=== PATIENT | female | born 1950 | race Two or more races ===

== ENCOUNTER 2017-06-10 16:08 | Observation (INO) | payer OTHER ==
[2017-06-10] MEDS ORDERED: IV RINGERS,LACTATED 1000ML 1,000 ML IV (16:29)
[2017-06-10 16:46] LABS: ADD MAN DIFF? NO
[2017-06-10 16:48] LABS: BASO % 0 % (0-3); EOS % 0 % (0-3); HEMATOCRIT 41.8 % (36.0-47.0); HEMOGLOBIN 13.8 g/dL (12.0-15.5); LYMPH # 1.3 x10^3/uL (1.0-4.8); LYMPH % 11 % (24-48); MEAN CORPUSCULAR HEMOGLOBIN 29 pg (25-35); MEAN CORPUSCULAR HGB CONC 33 g/dL (31-37); MEAN CORPUSCULAR VOLUME 89 fL (79-100); MONO # 0.9 x10^3/uL (0.0-1.1); MONO % 8 % (0-9); NEUT # 9.2 x10^3uL (1.8-7.7); NEUT % 81 % (31-73); PLATELET COUNT 197 x10^3/uL (140-400); RED BLOOD COUNT 4.68 x10^6/uL (3.50-5.40); RED CELL DISTRIBUTION WIDTH 13.3 % (11.5-14.5); WHITE BLOOD COUNT 11.3 x10^3/uL (4.0-11.0)
[2017-06-10] MEDS: ONDANSETRON PF 4 MG/2 ML VIAL. IV ×2 (16:55→22:56)
[2017-06-10] MEDS: IV NORMAL SALINE 1000ML BAG 1,000 ML IV ×2 (16:55→23:21)
[2017-06-10] MEDS: fentaNYL PF VIAL 100 MCG/2 ML VIAL IV (16:56)
[2017-06-10 16:57] LABS: ANION GAP 12 (6-14); BLOOD UREA NITROGEN 12 mg/dL (7-20); BUN/CREATININE RATIO 12 (6-20); CALCIUM 8.4 mg/dL (8.5-10.1); CARBON DIOXIDE 25 mmol/L (21-32); CHLORIDE 100 mmol/L (98-107); GFR 55.1; GLUCOSE 111 mg/dL (70-99); POTASSIUM 3.5 mmol/L (3.5-5.1); SODIUM 137 mmol/L (136-145)
[2017-06-10 17:04] LABS: ALBUMIN 3.4 g/dL (3.4-5.0); ALBUMIN/GLOBULIN RATIO 0.9 (1.0-1.7); ALK PHOS 70 U/L (46-116); ALT (SGPT) 23 U/L (14-59); AST (SGOT) 14 U/L (15-37); LIPASE 168 U/L (73-393); TOTAL BILIRUBIN 0.7 mg/dL (0.2-1.0); TOTAL PROTEIN 7.4 g/dL (6.4-8.2)
[2017-06-10] MEDS: IOHEXOL 300 MG/ML 100ML VIAL. IV (17:14)
[2017-06-10] MEDS ORDERED: ACETAMINOPHEN 325 MG TABLET. PO (18:15)
[2017-06-10] MEDS: MORPHINE SULFATE 4 MG/ML DISP.SYRIN. IV (22:55)
[2017-06-11] MEDS: IV NORMAL SALINE 1000ML BAG 1,000 ML IV ×3 (02:06→12:00)
[2017-06-11 04:33] LABS: POC GLUCOSE 108 mg/dL (70-99)
[2017-06-11 07:39] LABS: POC GLUCOSE 102 mg/dL (70-99)
[2017-06-11] MEDS ORDERED: ACETAMINOPHEN 325 MG TABLET. PO (12:00)
[2017-06-11] MEDS ORDERED: ONDANSETRON ODT 4 MG TAB.RAPDIS. PO (12:00)
[2017-06-11] MEDS: POTASSIUM CHLORIDE 20 MEQ TABLET.ER. PO (12:22)
[2017-06-11] MEDS ORDERED: metFORMIN 500 MG TABLET PO (17:00)
[2017-06-11] MEDS ORDERED: cefTRIAXone IV Push 1 GM VIAL. IVP (19:00)
[2017-06-12 01:00] LABS: POC GLUCOSE 96 mg/dL (70-99)
[2017-06-12 01:00] LABS: POC GLUCOSE 110 mg/dL (70-99)
[2017-06-12 01:00] LABS: POC GLUCOSE 114 mg/dL (70-99)
[2017-06-12] MEDS: IV NORMAL SALINE 1000ML BAG 1,000 ML IV (03:51)
[2017-06-12 05:10] LABS: ADD MAN DIFF? NO
[2017-06-12 05:27] LABS: BASO % 0 % (0-3); EOS % 1 % (0-3); HEMATOCRIT 34.2 % (36.0-47.0); HEMOGLOBIN 11.7 g/dL (12.0-15.5); LYMPH # 1.8 x10^3/uL (1.0-4.8); LYMPH % 28 % (24-48); MEAN CORPUSCULAR HEMOGLOBIN 31 pg (25-35); MEAN CORPUSCULAR HGB CONC 34 g/dL (31-37); MEAN CORPUSCULAR VOLUME 90 fL (79-100); MONO # 0.7 x10^3/uL (0.0-1.1); MONO % 12 % (0-9); NEUT # 3.7 x10^3uL (1.8-7.7); NEUT % 59 % (31-73); PLATELET COUNT 192 x10^3/uL (140-400); RED BLOOD COUNT 3.79 x10^6/uL (3.50-5.40); WHITE BLOOD COUNT 6.2 x10^3/uL (4.0-11.0)
[2017-06-12 05:50] LABS: ANION GAP 6 (6-14); BLOOD UREA NITROGEN 9 mg/dL (7-20); CALCIUM 8.5 mg/dL (8.5-10.1); CARBON DIOXIDE 28 mmol/L (21-32); CHLORIDE 109 mmol/L (98-107); CREATININE 0.6 mg/dL (0.6-1.0); GFR 99.4; GLUCOSE 98 mg/dL (70-99); POTASSIUM 3.7 mmol/L (3.5-5.1); SODIUM 143 mmol/L (136-145)
[2017-06-12 06:05] LABS: THYROID STIM HORMONE (TSH) 4.894 uIU/mL (0.358-3.74)
[2017-06-12] MEDS: POTASSIUM CL 20MEQ-0.45% NACL 1,000 ML IV (11:01)
[2017-06-12 13:19] LABS: C DIFF BY PCR Negative (Negative)
[2017-06-12 16:20] LABS: POC GLUCOSE 105 mg/dL (70-99)
[2017-06-12 16:20] LABS: POC GLUCOSE 98 mg/dL (70-99)
[2017-06-12 16:20] LABS: POC GLUCOSE 116 mg/dL (70-99)
[2017-06-13] MEDS: POTASSIUM CL 20MEQ-0.45% NACL 1,000 ML IV (04:26)
[2017-06-13 05:29] LABS: ADD MAN DIFF? NO
[2017-06-13 05:38] LABS: BASO % 0 % (0-3); EOS % 1 % (0-3); HEMOGLOBIN 12.5 g/dL (12.0-15.5); LYMPH # 1.9 x10^3/uL (1.0-4.8); LYMPH % 33 % (24-48); MEAN CORPUSCULAR HEMOGLOBIN 30 pg (25-35); MEAN CORPUSCULAR HGB CONC 34 g/dL (31-37); MEAN CORPUSCULAR VOLUME 90 fL (79-100); MONO # 0.8 x10^3/uL (0.0-1.1); MONO % 14 % (0-9); NEUT # 3.1 x10^3uL (1.8-7.7); NEUT % 52 % (31-73); PLATELET COUNT 234 x10^3/uL (140-400); RED BLOOD COUNT 4.13 x10^6/uL (3.50-5.40); RED CELL DISTRIBUTION WIDTH 13.1 % (11.5-14.5); WHITE BLOOD COUNT 5.8 x10^3/uL (4.0-11.0)
[2017-06-13 06:03] LABS: ANION GAP 9 (6-14); BLOOD UREA NITROGEN 7 mg/dL (7-20); CALCIUM 8.5 mg/dL (8.5-10.1); CARBON DIOXIDE 27 mmol/L (21-32); CHLORIDE 106 mmol/L (98-107); CREATININE 0.6 mg/dL (0.6-1.0); GFR 99.4; GLUCOSE 98 mg/dL (70-99); POTASSIUM 3.7 mmol/L (3.5-5.1); SODIUM 142 mmol/L (136-145)
[2017-06-13 07:20] LABS: POC GLUCOSE 97 mg/dL (70-99)
[2017-06-13 12:15] LABS: POC GLUCOSE 172 mg/dL (70-99)
== END 2017-06-13 12:50 | disposition home or self-care (01) ==
LOC: ER 16:08 → 5 SOUTH 17:58
DX: K52.9 Noninfective gastroenteritis and colitis, unspecified (principal); E11.9 Type 2 diabetes mellitus without complications; I10 Essential (primary) hypertension; K21.9 Gastro-esophageal reflux disease without esophagitis; K57.30 Diverticulosis of large intestine without perforation or abscess without bleeding; M85.80 Other specified disorders of bone density and structure, unspecified site; N20.0 Calculus of kidney; Z98.51 Tubal ligation status
CPT/HCPCS: 36415; 71045; 74177; 80048; 80053; 82962; 83690; 84443; 85025; 87045; 87205; 87324; 93005; 96361; 96365; 96366; 96367; 96368; 96375; 96376; 99285-25; G0378; G0379; J0690; J2270; J2405; J3010; J3490; J7030; Q9967

== ENCOUNTER 2019-02-24 21:35 | Observation (INO) | payer OTHER ==
[~2019-02-24] VITALS: Ht 152.4 cm; Wt 59.7 kg
[~2019-02-24 21:35] MED LIST: AMLO5TAB10 PO; ASPI-630 PO; CHOL10003 PO; DICL100G18 TP; GABA300C18 PO; KETO120S5 TP; KETO15CR2 TP; LOSA-73 PO; METF500T PO; OMEG1CAP38 PO; OMEP-229 PO; calcium; gabapentin; glucosamine; lisinopril; prilosec
[2019-02-24 22:07] LABS: BASO % 1 % (0-3); EOS % 0 % (0-3); HEMATOCRIT 42.7 % (36.0-47.0); HEMOGLOBIN 14.3 g/dL (12.0-15.5); LYMPH # 2.2 x10^3/uL (1.0-4.8); LYMPH % 27 % (24-48); MEAN CORPUSCULAR HEMOGLOBIN 31 pg (25-35); MEAN CORPUSCULAR HGB CONC 34 g/dL (31-37); MEAN CORPUSCULAR VOLUME 92 fL (79-100); MONO # 0.6 x10^3/uL (0.0-1.1); MONO % 7 % (0-9); NEUT # 5.2 x10^3/uL (1.8-7.7); NEUT % 65 % (31-73); PLATELET COUNT 231 x10^3/uL (140-400); RED BLOOD COUNT 4.66 x10^6/uL (3.50-5.40); RED CELL DISTRIBUTION WIDTH 13.2 % (11.5-14.5)
[2019-02-24 22:16] LABS: CALCIUM 9.3 mg/dL (8.5-10.1); CREATININE 0.7 mg/dL (0.6-1.0); GFR 82.7; POTASSIUM 3.6 mmol/L (3.5-5.1)
[2019-02-24 22:21] LABS: ALBUMIN 4.1 g/dL (3.4-5.0); TOTAL BILIRUBIN 0.4 mg/dL (0.2-1.0); TOTAL PROTEIN 8.2 g/dL (6.4-8.2)
[2019-02-24] MEDS ORDERED: NITROGLYCERIN SUBLINGUAL 0.4 MG BOTTLE OF 25. SL PRN ×2 (22:30→23:30)
--- NOTE | 2019-02-24 22:33 | PHYS DOC ---
Past Medical History Past Medical History: Diabetes-Type II, High Cholesterol, Hypertension, Other Additional Past Medical Histor: FATTY LIVER Past Surgical History: No Surgical History Alcohol Use: None Drug Use: None Adult General Chief Complaint Chief Complaint: CHEST PAIN HPI HPI Patient is a 68 year old history of CAD who presents with left-sided chest pain starting several hours prior to ED arrival. Pain is described as dull does not reproduce with palpation, movement or deep breathing. Partial relieved with nitroglycerin. No nausea vomiting or sweats. No shortness breath. Denies incr eased leg pain or swelling. No normal pain or flank pain. No other acute symptoms or complaints.[] Review of Systems Review of Systems Review symptoms as per history of present illness. All other review symptoms are negative. All other systems were reviewed and found to be within normal limits, except as documented in this note. Current Medications Current Medications Current Medications Medications (Trade) Dose Ordered Sig/Chidi Start Time Stop Time Status Last Admin Dose Admin Aspirin (Children'S Aspirin) 324 mg 1X ONCE 02/24/19 23:00 02/24/19 23:01 DC 02/24/19 23:02 324 MG Nitroglycerin (Nitrostat) 0.4 mg PRN Q5MIN PRN 02/24/19 22:30 02/24/19 23:03 0.4 MG Allergies Allergies Allergies Coded Allergies Type Severity Reaction Last Updated Verified No Known Drug Allergies 05/28/15 No Physical Exam Physical Exam Constitutional: Well developed, well nourished, no acute distress, non-toxic appearance. [] HENT: Normocephalic, atraumatic, bilateral external ears normal, oropharynx moist, no oral exudates, nose normal. [] Eyes: PERRLA, EOMI, conjunctiva normal, no discharge. [] Neck: Normal range of motion, no tenderness, supple, no stridor. [] Cardiovascular: Bradyardiac, no murmur, 1+peripheral edema, negative Homans sign.[] Lungs & Thorax: Bilateral breath sounds clear to auscultation [] Abdomen: Bowel sounds normal, soft, no tenderness, no masses, no pulsatile masses. [] Skin: Warm, dry, no erythema, no rash. [] Back: No tenderness, no CVA tenderness. [] Extremities: R forearm, contusion with finger imprints. [] Neurologic: Alert and oriented X 3, normal motor function, normal sensory function, no focal deficits noted. [] Psychologic: Affect normal, judgement normal, mood normal. [] Current Patient Data Vital Signs Vital Signs Date Time Temp Pulse Resp B/P (MAP) Pulse Ox O2 Delivery O2 Flow Rate FiO2 02/24/19 23:03 48 163/93 02/24/19 21:38 98.0 18 98 Room Air 98.0 Lab Values Laboratory Tests Test 02/24/19 21:50 White Blood Count 8.0 x10^3/uL (4.0-11.0) Red Blood Count 4.66 x10^6/uL (3.50-5.40) Hemoglobin 14.3 g/dL (12.0-15.5) Hematocrit 42.7 % (36.0-47.0) Mean Corpuscular Volume 92 fL (79-100) Mean Corpuscular Hemoglobin 31 pg (25-35) Mean Corpuscular Hemoglobin Concent 34 g/dL (31-37) Red Cell Distribution Width 13.2 % (11.5-14.5) Platelet Count 231 x10^3/uL (140-400) Neutrophils (%) (Auto) 65 % (31-73) Lymphocytes (%) (Auto) 27 % (24-48) Monocytes (%) (Auto) 7 % (0-9) Eosinophils (%) (Auto) 0 % (0-3) Basophils (%) (Auto) 1 % (0-3) Neutrophils # (Auto) 5.2 x10^3/uL (1.8-7.7) Lymphocytes # (Auto) 2.2 x10^3/uL (1.0-4.8) Monocytes # (Auto) 0.6 x10^3/uL (0.0-1.1) Eosinophils # (Auto) 0.0 x10^3/uL (0.0-0.7) Basophils # (Auto) 0.0 x10^3/uL (0.0-0.2) D-Dimer ([place]) 0.35 ug/mlFEU (0.00-0.50) Sodium Level 139 mmol/L (136-145) Potassium Level 3.6 mmol/L (3.5-5.1) Chloride Level 103 mmol/L (98-107) Carbon Dioxide Level 27 mmol/L (21-32) Anion Gap 9 (6-14) Blood Urea Nitrogen 14 mg/dL (7-20) Creatinine 0.7 mg/dL (0.6-1.0) Estimated GFR (Cockcroft-Gault) 82.7 BUN/Creatinine Ratio 20 (6-20) Glucose Level 108 mg/dL (70-99) H Calcium Level 9.3 mg/dL (8.5-10.1) Total Bilirubin 0.4 mg/dL (0.2-1.0) Aspartate Amino Transferase (AST) 18 U/L (15-37) Alanine Aminotransferase (ALT) 23 U/L (14-59) Alkaline Phosphatase 92 U/L (46-116) Troponin I Quantitative < 0.017 ng/mL (0.000-0.055) Total Protein 8.2 g/dL (6.4-8.2) Albumin 4.1 g/dL (3.4-5.0) Albumin/Globulin Ratio 1.0 (1.0-1.7) Laboratory Tests 02/24/19 21:50 Laboratory Tests 02/24/19 21:50 EKG EKG [EKG: reviewed] Radiology/Procedures Radiology/Procedures CXR: reviewed[] Course & Med Decision Making Course & Med Decision Making Pertinent Labs and Imaging studies reviewed. (See chart for details) [Aspirin, nitroglycerin given in the ED. Chest pain resolved. Dr. Landeros to admit with anticipated cardiology consult.] Dragon Disclaimer Dragon Disclaimer This electronic medical record was generated, in whole or in part, using a voice recognition dictation system. Departure Departure Impression: Primary Impression: Chest pain Disposition: ADMITTED INPATIENT Admitting Physician: Allen Landeros Condition: STABLE Referrals: ALLEN LANDEROS MD (PCP) Scripts No Active Prescriptions or Reported Meds OPHELIA WALLACE DO Feb 24, 2019 22:33
[2019-02-24] MEDS ORDERED: ASPIRIN CHEWABLE 81 MG TABLET. PO ONE (23:00)
[2019-02-24] MEDS ORDERED: ONDANSETRON PF 4 MG/2 ML VIAL. IV PRN (23:30)
--- NOTE | 2019-02-24 23:57 | RAD ---
EXAM: CHEST 1 VIEW History: Chest pain COMPARISON: 06/11/2017 TECHNIQUE: Single portable radiograph of the chest FINDINGS: The cardiac silhouette is unremarkable. The lungs are clear bilaterally. The costophrenic sulci are clear and well demarcated. IMPRESSION: No radiographic evidence of an acute cardiopulmonary process. Electronically signed by: Juan Luong MD (02/24/2019 11:54 PM) [facility]
[2019-02-25 01:29] VITALS: BP 161/69
[2019-02-25 03:55] LABS: BASO # 0.1 x10^3/uL (0.0-0.2); BASO % 1 % (0-3); EOS # 0.1 x10^3/uL (0.0-0.7); EOS % 1 % (0-3); HEMATOCRIT 39.3 % (36.0-47.0); HEMOGLOBIN 13.2 g/dL (12.0-15.5); LYMPH # 1.9 x10^3/uL (1.0-4.8); LYMPH % 30 % (24-48); MEAN CORPUSCULAR HEMOGLOBIN 31 pg (25-35); MEAN CORPUSCULAR HGB CONC 34 g/dL (31-37); MEAN CORPUSCULAR VOLUME 92 fL (79-100); MONO # 0.6 x10^3/uL (0.0-1.1); MONO % 9 % (0-9); NEUT # 3.8 x10^3/uL (1.8-7.7); NEUT % 59 % (31-73); PLATELET COUNT 219 x10^3/uL (140-400); RED BLOOD COUNT 4.28 x10^6/uL (3.50-5.40); RED CELL DISTRIBUTION WIDTH 12.7 % (11.5-14.5); WHITE BLOOD COUNT 6.4 x10^3/uL (4.0-11.0)
[2019-02-25 03:59] VITALS: BP 129/64
[2019-02-25 04:02] LABS: CALCIUM 8.9 mg/dL (8.5-10.1); CREATININE 0.7 mg/dL (0.6-1.0); GFR 82.7; POTASSIUM 3.4 mmol/L (3.5-5.1)
--- NOTE | 2019-02-25 06:46 | EKG ---
[facility] [address] [place] [address] Test Date: 2019-02-24 Test Time: 21:41:22 Pat Name: JENNA JACKSON Department: Room: 646 1 Gender: F Client Specialist: : [id number] Requested By: OPHELIA WALLACE Order Number: [id number] Reading MD: Tin Lockhart MD Measurements Intervals [place] Rate: 50 P: -56 AL: 188 QRS: -33 QRSD: 90 T: 39 QT: 438 QTc: 405 Interpretive Statements SINUS RHYTHM NON-SPECIFIC ST/T CHANGES Electronically Signed On 02-25-2019 14:56:54 PRODUCTION ARTIST by Tin Lockhart MD
[2019-02-25 07:37] VITALS: BP 144/72
[2019-02-25] MEDS ORDERED: METF500T16 PO (07:56)
[2019-02-25] MEDS ORDERED: CHOL200078 PO (07:56)
[2019-02-25] MEDS ORDERED: OMEG-32 PO (07:56)
[2019-02-25] MEDS ORDERED: ATOR10TA60 PO (07:56)
[2019-02-25] MEDS ORDERED: GABA-585 PO (07:56)
[2019-02-25] MEDS ORDERED: LOSA-73 PO (07:56)
[2019-02-25] MEDS ORDERED: GABAPENTIN 100 MG CAPSULE. PO SCH (09:00)
[2019-02-25] MEDS ORDERED: OMEGA-3 FATTY ACIDS/FISH OIL 1,000 MG CAPSULE. PO SCH ×2 (09:00)
[2019-02-25] MEDS ORDERED: LOSARTAN POTASSIUM 50 MG TABLET. PO SCH (09:00)
[2019-02-25] MEDS ORDERED: ACETAMINOPHEN 325 MG TABLET. PO PRN (10:30)
--- NOTE | 2019-02-25 10:43 | PDOC ---
Provider Note Provider Note history and physical dictated # [id number] GILBERTO HURTADO MD Feb 25, 2019 10:43
--- NOTE | 2019-02-25 10:53 | HP ---
ADMIT DATE: 02/24/2019 LOCATION: She is in room 646. HISTORY OF PRESENT ILLNESS: The patient is a 68-year-old white female with a history of diabetes mellitus type 2, hypertension, hyperlipidemia, who noted the onset of left-sided chest pain, which she described as a sharp pain. Lasted about 5 minutes or so. Eventually resolved. She denied any diaphoresis or shortness of breath. The pain radiated to the shoulder and also to back. Apparently, she had partial relief with nitroglycerin according to the Emergency Room note. She was subsequently admitted to the hospital for further evaluation and treatment. ALLERGIES AND INTOLERANCES: TRAMADOL, WHICH CAUSED DIZZINESS. MEDICATIONS: Prior to admission include atorvastatin 10 mg every day, fish oil 1 g every day, gabapentin 100 mg b.i.d., losartan 50 mg every day, meclizine 12.5 mg t.i.d. p.r.n. vertigo, metformin 500 mg b.i.d., omeprazole 40 mg every day, and vitamin D 1000 units every day. PAST MEDICAL HISTORY: Significant for diabetes mellitus type 2, hypertension, hyperlipidemia, osteopenia, hiatal hernia, gastric polyp in 2004, diverticulosis, cholelithiasis, bilateral tubal ligation, colonoscopy in 2002, bilateral cataract extraction in 2018. SOCIAL HISTORY: She does not drink alcohol nor does she smoke cigarettes. She is . FAMILY HISTORY: Noncontributory. REVIEW OF SYSTEMS: GENERAL: She denies any fever, chills or sweats in the last 3 days. CARDIOVASCULAR: She had the chest pain. PULMONARY: No cough or shortness of breath. GASTROINTESTINAL: No diarrhea. ENDOCRINE: She has diabetes mellitus. SKIN: No rashes. The rest of systems reviewed are negative except as stated in the history of present illness. PHYSICAL EXAMINATION: VITAL SIGNS: Temperature 97.5 degrees, apical pulse is 49 on the monitor in sinus bradycardia, respiratory rate 18, blood pressure 144/72, oxygen saturation 98% on room air. HEENT: Eyes: Gaze is conjugate. Mouth: Tongue is midline. NECK: There is no cervical lymphadenopathy or thyroid enlargement. HEART: Reveals an S1, S2. There is no S3 or murmur. LUNGS: Clear. ABDOMEN: Soft with no hepatosplenomegaly, masses or tenderness. EXTREMITIES: Lower extremities without edema. SKIN: No rashes. NEUROLOGIC: Revealed no focal weakness of the extremities or facial asymmetry. LABORATORY DATA: White count is 6.4, hemoglobin 13.2 with a platelet count 219,000, 59 polys, 30 lymphocytes. D-dimer was 0.35. Sodium 140, potassium 3.4, chloride is 105, total CO2 was 26, blood sugar 104, calcium 8.9. Fingerstick blood sugar 99 this morning. Troponin levels negative x 3. EKG showed normal sinus rhythm with no acute change. Chest x-ray was unremarkable with clear lungs. ASSESSMENT: 1. Chest pain. 2. Hypertension. 3. Hyperlipidemia. 4. Diabetes mellitus type 2. 5. Sinus bradycardia. 6. Hypokalemia. PLAN: To consult Dr. Walsh for Cardiology. She did not have a myocardial infarction. The chest pain, somewhat atypical in that it was sharp in qualitative measure; however, she does have risk factors for coronary artery disease including diabetes mellitus, hypertension and hyperlipidemia. We will order an echocardiogram for the stress testing to the office support. We will check a thyroid function test. Check a lipid profile tomorrow. Put her on a diabetic cardiac diet. She had other labs done including liver function tests, which were normal. Albumin was 4.1, blood sugar was 108, calcium was normal at 9.32. Also gave her potassium chloride 20 mEq now. GILBERTO HURTADO MD DR: FLAKITO/sun JOB#: [id number] / [id number]
[2019-02-25 11:09] LABS: FREE T4 0.9 ng/dL (0.76-1.46); THYROID STIM HORMONE (TSH) 5.368 uIU/mL (0.358-3.74)
[2019-02-25 11:30] VITALS: BP 155/74
[2019-02-25] MEDS ORDERED: PANTOPRAZOLE 40 MG TABLET.DR. PO SCH (12:00)
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
[2019-02-25] MEDS: metFORMIN 500 MG TABLET PO SCH ×2 (15:19→16:52)
[2019-02-25 15:40] VITALS: BP 158/77
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
--- NOTE | 2019-02-25 18:24 | PDOC2 ---
CARDIOLOGY CONSULT NOTE CHEIF COMPLAINT: Chest discomfort HPI: Margret is a very pleasant 68-year-old woman who comes into the hospital in the setting of chest discomfort. She reports that this started after she had extreme stress related to losing some paperwork for her upcoming citizenship tests. In this setting she became very anxious and also had some discomfort. Upon admission to the hospital evaluation including EKG and cardiac enzymes have been unremarkable. She actually underwent extensive testing with a event recorder and treadmill stress echocardiogram in July 2018 which were unremarkable at [facility]. Since admission she denies any recurrent chest pain, dyspnea, orthopnea or PND. She's not had any baseline functional capacity issues at home. PMHX: #1 hypertension #2 dyslipidemia #3 type 2 diabetes SOCHX: No alcohol, tobacco or illicit drug use. FAMHX: Noncontributory CURRENT MEDS: Current Medications Medications (Trade) Dose Ordered Sig/Chidi Route PRN Reason Start Time Stop Time Status Last Admin Dose Admin Nitroglycerin (Nitrostat) 0.4 mg PRN Q5MIN PRN SL CHEST PAIN 02/24/19 22:30 02/24/19 23:24 DC 02/24/19 23:03 Aspirin (Children'S Aspirin) 324 mg 1X ONCE PO 02/24/19 23:00 02/24/19 23:01 DC 02/24/19 23:02 Gabapentin (Neurontin) 100 mg BID PO 02/25/19 09:00 02/25/19 17:38 DC 02/25/19 15:19 Losartan Potassium (Cozaar) 50 mg DAILY PO 02/25/19 09:00 02/25/19 17:38 DC 02/25/19 15:19 Fish Oil (Fish Oil) 1,000 mg DAILY PO 02/25/19 09:00 02/25/19 17:38 DC 02/25/19 15:19 Metformin HCl (Glucophage) 500 mg BIDWMEALS PO 02/25/19 11:30 02/25/19 17:38 DC 02/25/19 16:52 Pantoprazole Sodium (Protonix) 40 mg DAILYAC PO 02/25/19 12:00 02/25/19 17:38 DC 02/25/19 15:19 ALLERGIES: Allergies Coded Allergies Type Severity Reaction Last Updated Verified No Known Drug Allergies 05/28/15 No ROS: Negative for 10 out of 14 systems reviewed unless otherwise mentioned above in history of present illness PHYSICAL EXAM: Vital Signs/I&O: Vital Signs Date Time Temp Pulse Resp B/P (MAP) Pulse Ox O2 Delivery O2 Flow Rate FiO2 02/25/19 15:40 97.8 63 18 158/77 (104) 99 Room Air 97.8 Physical Exam: GEN.: No apparent distress. Alert and oriented. HEENT: Head is normocephalic, atraumatic NECK: Supple. LUNGS: Clear to auscultation. HEART: RRR, S1, S2 present. Peripheral pulses intact ABDOMEN: Soft, nontender. Positive bowel sounds. EXTREMITIES: Without any cyanosis. NEUROLOGIC: Normal speech, normal tone PSYCHIATRIC: Normal affect, normal mood. SKIN: No ulcerations DIAGNOSTIC TESTING: EKG, enzymes and outside hospital records reviewed. No acute cardiac pathology noted telemetry is unremarkable Lab Laboratory Tests Test 02/24/19 21:50 02/25/19 02:20 02/25/19 07:34 02/25/19 12:05 White Blood Count 8.0 x10^3/uL (4.0-11.0) 6.4 x10^3/uL (4.0-11.0) Red Blood Count 4.66 x10^6/uL (3.50-5.40) 4.28 x10^6/uL (3.50-5.40) Hemoglobin 14.3 g/dL (12.0-15.5) 13.2 g/dL (12.0-15.5) Hematocrit 42.7 % (36.0-47.0) 39.3 % (36.0-47.0) Mean Corpuscular Volume 92 fL (79-100) 92 fL (79-100) Mean Corpuscular Hemoglobin 31 pg (25-35) 31 pg (25-35) Mean Corpuscular Hemoglobin Concent 34 g/dL (31-37) 34 g/dL (31-37) Red Cell Distribution Width 13.2 % (11.5-14.5) 12.7 % (11.5-14.5) Platelet Count 231 x10^3/uL (140-400) 219 x10^3/uL (140-400) Neutrophils (%) (Auto) 65 % (31-73) 59 % (31-73) Lymphocytes (%) (Auto) 27 % (24-48) 30 % (24-48) Monocytes (%) (Auto) 7 % (0-9) 9 % (0-9) Eosinophils (%) (Auto) 0 % (0-3) 1 % (0-3) Basophils (%) (Auto) 1 % (0-3) 1 % (0-3) Neutrophils # (Auto) 5.2 x10^3/uL (1.8-7.7) 3.8 x10^3/uL (1.8-7.7) Lymphocytes # (Auto) 2.2 x10^3/uL (1.0-4.8) 1.9 x10^3/uL (1.0-4.8) Monocytes # (Auto) 0.6 x10^3/uL (0.0-1.1) 0.6 x10^3/uL (0.0-1.1) Eosinophils # (Auto) 0.0 x10^3/uL (0.0-0.7) 0.1 x10^3/uL (0.0-0.7) Basophils # (Auto) 0.0 x10^3/uL (0.0-0.2) 0.1 x10^3/uL (0.0-0.2) D-Dimer ([place]) 0.35 ug/mlFEU (0.00-0.50) Sodium Level 139 mmol/L (136-145) 140 mmol/L (136-145) Potassium Level 3.6 mmol/L (3.5-5.1) 3.4 mmol/L (3.5-5.1) L Chloride Level 103 mmol/L (98-107) 105 mmol/L (98-107) Carbon Dioxide Level 27 mmol/L (21-32) 26 mmol/L (21-32) Anion Gap 9 (6-14) 9 (6-14) Blood Urea Nitrogen 14 mg/dL (7-20) 11 mg/dL (7-20) Creatinine 0.7 mg/dL (0.6-1.0) 0.7 mg/dL (0.6-1.0) Estimated GFR (Cockcroft-Gault) 82.7 82.7 BUN/Creatinine Ratio 20 (6-20) Glucose Level 108 mg/dL (70-99) H 104 mg/dL (70-99) H Calcium Level 9.3 mg/dL (8.5-10.1) 8.9 mg/dL (8.5-10.1) Total Bilirubin 0.4 mg/dL (0.2-1.0) Aspartate Amino Transf (AST/SGOT) 18 U/L (15-37) Alkaline Phosphatase 92 U/L (46-116) Total Protein 8.2 g/dL (6.4-8.2) Albumin 4.1 g/dL (3.4-5.0) Albumin/Globulin Ratio 1.0 (1.0-1.7) Thyroid Stimulating Hormone (TSH) 5.368 uIU/mL (0.358-3.74) H Free Thyroxine 0.90 ng/dL (0.76-1.46) Glucose (Fingerstick) 99 mg/dL (70-99) 99 mg/dL (70-99) Test 02/25/19 16:45 Glucose (Fingerstick) 129 mg/dL (70-99) H Laboratory Tests 02/25/19 02:20 ASSESSMENT: 1. Noncardiac chest pain 2. Hypertension 3. Dyslipidemia 4. Type 2 diabetes PLAN: 1. No further cardiac testing necessary at this time. Although she has multiple risk factors recent evaluation with a treadmill stress echo has been unremarkable. She likely has some discomfort related to her stress. Supportive care from a cardiac standpoint and I advised her to call our office or follow-up with her every scientific informatics analyst if she has any recurrent chest discomfort for further evaluation. Patient understands the current plan. Continue home medical therapy. Please call with any further questions. Thank you for this consultation. TIMMY VIZCAINO MD Feb 25, 2019 18:24
[2019-02-25] MEDS ORDERED: ATORVASTATIN CALCIUM 10 MG TABLET. PO SCH (21:00)
[2019-02-26] MEDS ORDERED: CHOLECALCIFEROL (VITAMIN D3) 1,000 UNIT TABLET PO SCH (09:00)
--- NOTE | 2019-02-26 10:34 | PDOC ---
Provider Note Provider Note discharge summary dictated # [id number] GILBERTO HURTADO MD Feb 26, 2019 10:34
--- NOTE | 2019-02-26 11:20 | DS ---
DATE OF DISCHARGE: 02/25/2019 ACCOUNT UNDERWRITER: Dr. Lockhart. FINAL DIAGNOSES: 1. Chest pain secondary to costochondritis. 2. Hypertension. 3. Hyperlipidemia. 4. Diabetes mellitus type 2. 5. Sinus bradycardia. 6. Hypokalemia. HOSPITAL COURSE: The patient is a 68-year-old female with a history of diabetes mellitus type 2, hypertension, hyperlipidemia, noted left-sided chest pain, which she described as a sharp pain lasting about 5 minutes, which eventually resolved without diaphoresis or shortness of breath. The pain radiated to her shoulder and back. She has been under a lot of stress. She did have a workup in July 2018 with a stress echocardiogram and a heart monitor, which was unremarkable. Seen by Dr. Lockhart who felt that her chest pain was not cardiac and that she could be dismissed. Cardiac enzymes were negative and she will be dismissed to home on the same medication she was taking prior to admission. She did not have any further chest pain and she will be dismissed on atorvastatin 10 mg every day, fish oil 1 g every day, gabapentin 100 mg b.i.d., losartan 50 mg every day, meclizine 12.5 mg t.i.d. p.r.n., metformin 500 mg b.i.d. and omeprazole 40 mg every day, and vitamin D at 1000 units every day. Her TSH level was slightly increased from a little over 5, but her free T4 level was still in the normal range. She will make an appointment to see Dr. Landeros in the office next week and followup. GILBERTO LANDEROS MD DR: FLAKITO/sun JOB#: [id number] / [id number]
== END 2019-02-25 17:37 | disposition home or self-care (01) ==
LOC: ER 21:35 → 6 SOUTH 23:08
PROVIDERS: ADMIT Internal Medicine; ATTEND Internal Medicine
DX: R07.89 Other chest pain (principal); I10 Essential (primary) hypertension; E78.5 Hyperlipidemia, unspecified; E11.9 Type 2 diabetes mellitus without complications; E87.6 Hypokalemia; R00.1 Bradycardia, unspecified; M85.80 Other specified disorders of bone density and structure, unspecified site; Z98.51 Tubal ligation status; Z98.41 Cataract extraction status, right eye; Z98.42 Cataract extraction status, left eye
CPT/HCPCS: 36415; 71045; 80048; 80053; 82962; 84439; 84443; 84484; 85025; 85379; 93005; 99284; G0378; G0379